=== PATIENT | female | born 1950 | race Two or more races ===

== ENCOUNTER 2020-04-26 13:50 | Outpatient (REF) | payer MEDICARE, SELFPAY ==
--- NOTE | 2020-04-26 | MM_ITS ---
EXAMINATION: MM DIAGNOSTIC DIGITAL BREAST TOMOSYNTHESIS, BILATERAL CLINICAL INFORMATION: Follow up bilateral calcifications The lifetime risk of breast cancer based on the Tyrer-Cuzick Model is 8.9%. COMPARISON: Mammography: April 04, 2019 and studies dating back to September 23, 2012 TECHNIQUE: Digital breast tomosynthesis is performed in both the craniocaudal and mediolateral oblique views along with computer-aided detection (CAD). Synthesized 2D images are generated from the tomosynthesis. Additional spot magnification views performed of each breast in craniocaudal and 90 degree mediolateral views. FINDINGS: The breasts are heterogeneously dense, which may obscure small masses (ACR BI-RADS breast composition Category c). There is stability of bilateral grouped and scattered calcifications. There is a stable region of architectural distortion seen about the lateral aspect of the left breast. No new abnormal dominant mass. Results are provided to the patient at time of visit by the technologist. MM/MM tomosynthesis diagnostic BI IMPRESSION: There are no significant changes from prior study. ASSESSMENT: BI-RADS 2: Benign RECOMMENDATION: Routine annual mammography screening due in 12 months. This patient's information was entered into a reminder system with a target due date for their next mammogram.
== END 2020-04-26 13:51 | disposition home or self-care (01) ==
LOC: HO.MAMMO 13:50
PROVIDERS: Visit Provider Internal Medicine
DX: R92.1 Mammographic calcification found on diagnostic imaging of breast (principal); Z12.31 Encounter for screening mammogram for malignant neoplasm of breast
CPT/HCPCS: 77062; 77066

== ENCOUNTER 2020-07-26 08:26 | Outpatient (REF) | payer MEDICARE, SELFPAY ==
[2020-07-26 09:18] LABS: MANUAL DIFF FLAG NO
[2020-07-26 09:26] LABS: Basophils Percent Auto 0.7 % (0-2); Eosinophils Absolute Auto 0.1 X10*3/uL (0.0-0.4); Hematocrit 42.6 % (37-47); Hemoglobin 13.9 g/dl (12.0-16.0); Imm Gran Abs Auto 0.01 X10*3/uL (0.00-0.03); Imm Gran Pct Auto 0.2 % (0.0-0.4); Lymphocytes Percent Auto 49.3 % (20-40); Mean Corpuscular HGB Conc 32.6 g/dl (31.0-35.0); Mean Platelet Volume 10.1 fL (9.4-12.3); Monocytes Absolute Auto 0.5 X10*3/uL (0.1-1.2); Monocytes Percent Auto 7.6 % (2-11); Neutrophils Absolute Auto 2.5 X10*3/uL (2.0-8.3); Neutrophils Percent Auto 40.2 % (45-73); Platelet Count 188 X10*3/uL (160-400); Red Blood Count 4.63 X10*6/uL (4.20-5.50); Red Cell Distribution Width 13.2 % (11.0-16.0); White Blood Count 6.2 X10*3/uL (4.8-10.8)
[2020-07-26 09:59] LABS: Alanine Aminotransferase 52 U/L (0-31); Alkaline Phosphatase 113 U/L (39-117); Anion Gap 14 (12-20); Aspartate Amino Transferase 49 U/L (5-31); Bilirubin Total 1.2 mg/dL (0.0-1.0); Blood Urea Nitrogen 10 mg/dL (9-16); Calcium 9.5 mg/dL (8.4-10.2); Carbon Dioxide 27 mmol/L (22-29); Chloride 104 mmol/L (96-108); Cholesterol 215 mg/dL; Estimated Glomerular Filt Rate > 60; Glucose Fasting 161 mg/dL (60-99); HDL Cholesterol 41 mg/dL; LDL Cholesterol Calculated 142 mg/dl; Potassium 4.7 mmol/L (3.3-5.1); Sodium 140 mmol/L (135-145); Total Protein 8.2 g/dL (6.5-8.0); Triglycerides 160 mg/dL
[2020-08-04 13:26] LABS: Vitamin D 25-OH, D2 <4 ng/mL; Vitamin D 25-OH, D3 16 ng/mL; Vitamin D 25-OH, Total 16 ng/mL (30-100)
== END 2020-07-26 08:27 | disposition home or self-care (01) ==
LOC: HO.LAB 08:26
PROVIDERS: PCP Internal Medicine; Visit Provider Internal Medicine
DX: E78.5 Hyperlipidemia, unspecified (principal); E55.9 Vitamin D deficiency, unspecified; R73.09 Other abnormal glucose
CPT/HCPCS: 36415; 80053; 80061; 82306; 85025

== ENCOUNTER 2022-03-27 08:31 | Outpatient (REF) | payer OTHER, SELFPAY ==
--- NOTE | ~2022-03-27 | MM_ITS ---
EXAMINATION: MM SCREENING DIGITAL BREAST TOMOSYNTHESIS, BILATERAL CLINICAL INFORMATION: Screening. Asymptomatic. Patient states she has not had previous surgery however review of studies dating back to 2006 demonstrate patient to have been status post surgical procedure in the upper outer aspect of the left breast. COMPARISON: Mammography: 04/26/2020 and studies dating back to 01/24/2014. TECHNIQUE: Digital breast tomosynthesis is performed in both the craniocaudal and mediolateral oblique views along with computer-aided detection (CAD). Synthesized 2D images are generated from the tomosynthesis. FINDINGS: The breasts are heterogeneously dense, which may obscure small masses (ACR BI-RADS breast composition Category c). There are no new significant masses, abnormal calcifications, or other abnormalities. Stable postsurgical changes seen within the upper outer aspect of the left breast. There is multiplicity and bilaterality of calcifications with no 1 new suspicious grouping of calcifications identified. MM/MM tomosynthesis screening BI IMPRESSION: No significant changes from prior exam. ASSESSMENT: BI-RADS 2: Benign. RECOMMENDATION: Routine annual mammography screening. This patient's information was entered into a reminder system with a target due date for their next mammogram.
== END 2022-03-27 08:32 | disposition home or self-care (01) ==
LOC: HO.MAMMO 08:31
PROVIDERS: PCP Internal Medicine; Visit Provider Internal Medicine
DX: Z12.31 Encounter for screening mammogram for malignant neoplasm of breast (principal)
CPT/HCPCS: 77063; 77067

== ENCOUNTER 2022-04-19 08:55 | Outpatient (REF) | payer OTHER, SELFPAY ==
[2022-04-19 10:24] LABS: Alanine Aminotransferase 29 U/L (0-31); Albumin Level 3.8 g/dL (3.5-5.0); Alkaline Phosphatase 107 U/L (39-117); Anion Gap 12 (12-20); Aspartate Amino Transferase 30 U/L (5-31); Blood Urea Nitrogen 8 mg/dL (9-16); Calcium 9.3 mg/dL (8.4-10.2); Carbon Dioxide 28 mmol/L (22-29); Chloride 104 mmol/L (96-108); Cholesterol 200 mg/dL; Estimated Glomerular Filt Rate > 60; Glucose Fasting 157 mg/dL (60-99); HDL Cholesterol 52 mg/dL; LDL Cholesterol Calculated 125 mg/dl; Potassium 4.2 mmol/L (3.3-5.1); Sodium 140 mmol/L (135-145); Total Protein 7.5 g/dL (6.5-8.0); Triglycerides 119 mg/dL
== END 2022-04-19 08:56 | disposition home or self-care (01) ==
LOC: HO.LAB 08:55
PROVIDERS: PCP Internal Medicine; Visit Provider Internal Medicine
DX: R73.09 Other abnormal glucose (principal); E78.5 Hyperlipidemia, unspecified
CPT/HCPCS: 36415; 80053; 80061

== ENCOUNTER 2022-08-27 08:20 | Outpatient (REF) | payer MEDICARE, SELFPAY ==
[2022-08-27 09:45] LABS: Alanine Aminotransferase 35 U/L (0-31); Albumin Level 3.5 g/dL (3.5-5.0); Alkaline Phosphatase 130 U/L (39-117); Anion Gap 11 (12-20); Aspartate Amino Transferase 34 U/L (5-31); Bilirubin Total 1.1 mg/dL (0.0-1.0); Blood Urea Nitrogen 9 mg/dL (9-16); Calcium 9.3 mg/dL (8.4-10.2); Carbon Dioxide 27 mmol/L (22-29); Chloride 106 mmol/L (96-108); Cholesterol 201 mg/dL; Estimated Glomerular Filt Rate > 60; Glucose Fasting 160 mg/dL (60-99); HDL Cholesterol 48 mg/dL; LDL Cholesterol Calculated 132 mg/dl; Potassium 3.8 mmol/L (3.3-5.1); Sodium 140 mmol/L (135-145); Total Protein 7.1 g/dL (6.5-8.0); Triglycerides 107 mg/dL
[2022-08-27 10:44] LABS: Creatinine Urine 111.49 mg/dL
[2022-08-27 11:46] LABS: Vitamin D 25-OH Total 22.1 ng/mL (>30)
== END 2022-08-27 08:21 | disposition home or self-care (01) ==
LOC: HO.LAB 08:20
PROVIDERS: PCP Internal Medicine; Visit Provider Internal Medicine
DX: E11.9 Type 2 diabetes mellitus without complications (principal); E78.5 Hyperlipidemia, unspecified; E55.9 Vitamin D deficiency, unspecified
CPT/HCPCS: 36415; 80053; 80061; 82043; 82306

== ENCOUNTER 2023-04-13 09:58 | Outpatient (REF) | payer MEDICARE, SELFPAY ==
--- NOTE | ~2023-04-13 | MM_ITS ---
EXAMINATION: MM SCREENING DIGITAL BREAST TOMOSYNTHESIS, BILATERAL CLINICAL INFORMATION: Screening. Asymptomatic. COMPARISON: Mammography: This study is compared with prior exams dating back to 2009. TECHNIQUE: Digital breast tomosynthesis is performed in both the craniocaudal and mediolateral oblique views along with computer-aided detection (CAD). Synthesized 2D images are generated from the tomosynthesis. FINDINGS: The breasts are heterogeneously dense, which may obscure small masses (ACR BI-RADS breast composition Category c). The patient has a history of prior excisional biopsy in the upper outer quadrant of the left breast which was performed to 2006. This information is gleaned from the screening mammogram report from March 2022. Consistent with that history, there is long-standing architectural change in the upper outer quadrant of the left breast consistent with findings related to prior surgery. The center of the postsurgical scarring is a lucent and without convergence of trabecula lines to a single, central point, indicating that this is not a neoplastic process. There are also stable benign calcifications in the same quadrant and a tissue marker from prior benign percutaneous biopsy. There are no significant masses, abnormal calcifications, or other abnormalities. MM/MM tomosynthesis screening BI IMPRESSION: No mammographic evidence of malignancy. ASSESSMENT: BI-RADS BI-RADS 2 - Benign Findings RECOMMENDATION: Routine annual mammography screening. 1 year F/U This examination should not preclude the clinical evaluation of a suspicious palpable abnormality. This patient's information was entered into a reminder system with a target due date for their next mammogram.
== END 2023-04-13 09:59 | disposition home or self-care (01) ==
LOC: HO.MAMMO 09:58
PROVIDERS: PCP Internal Medicine; Visit Provider Internal Medicine
DX: Z12.31 Encounter for screening mammogram for malignant neoplasm of breast (principal)
CPT/HCPCS: 77063; 77067

== ENCOUNTER → 2023-04-13 10:00 | Outpatient (BNV) | payer MEDICARE, SELFPAY | PROVIDERS: PCP Internal Medicine; Visit Provider Radiology Diagnostic Radiology | DX: Z12.31 Encounter for screening mammogram for malignant neoplasm of breast (principal) | CPT/HCPCS: 77063; 77067 ==

== ENCOUNTER 2024-04-18 09:51 | Outpatient (REF) | payer MEDICARE, SELFPAY ==
--- NOTE | ~2024-04-18 | MM_ITS ---
EXAMINATION: MM SCREENING DIGITAL BREAST TOMOSYNTHESIS, BILATERAL CLINICAL INFORMATION: Screening. Asymptomatic. COMPARISON: Mammography: Comparison is made with available priors TECHNIQUE: Digital breast mammography with tomosynthesis is performed in both the craniocaudal and mediolateral oblique views along with computer-aided detection (CAD). FINDINGS: The breasts are heterogeneously dense, which may obscure small masses (ACR BI-RADS breast composition Category c). Prior left postsurgical changes are stable. Marker clip in the left upper outer breast. There are no significant masses, abnormal calcifications, or other abnormalities. MM/MM tomosynthesis screening BI IMPRESSION: No mammographic evidence of malignancy. ASSESSMENT: BI-RADS BI-RADS 2 - Benign Findings RECOMMENDATION: Routine annual mammography screening. 1 year F/U This examination should not preclude the clinical evaluation of a suspicious palpable abnormality. This patient's information was entered into a reminder system with a target due date for their next mammogram. Electronically signed by: Comfort Mckoy DO 04/22/2024 01:37 PM EDIE SAUCEDA
== END 2024-04-18 09:52 | disposition home or self-care (01) ==
LOC: HO.MAMMO 09:51
PROVIDERS: PCP Internal Medicine; Visit Provider Internal Medicine
DX: Z12.31 Encounter for screening mammogram for malignant neoplasm of breast (principal)
CPT/HCPCS: 77063; 77067

== ENCOUNTER → 2024-04-18 10:00 | Outpatient (BNV) | payer MEDICARE, SELFPAY | PROVIDERS: PCP Internal Medicine; Visit Provider Internal Medicine | DX: Z12.31 Encounter for screening mammogram for malignant neoplasm of breast (principal) | CPT/HCPCS: 77063; 77067 ==

== ENCOUNTER 2025-02-01 09:34 | Outpatient (AMB) | payer OTHER, SELFPAY ==
--- NOTE | 2025-02-01 09:35 | A.OFFPC_ITS ---
Vital Signs 02/01/25 09:46 Height 5 ft 1.22 in Weight 140 lb 4 oz BMI 26.3 BP 130/84 Blood Pressure Location Rt brachial Position Sitting Respiration 16 Pulse 89 Pulse Source Pulse Oximeter Temp 98.0 F Temp Source Oral Pulse Oximetry (%) 96 Oxygen Delivery Method Room Air Intake Visit Reasons: hemoglobin is low Intake Note: Patient here for a follow up DM Marketing Technology Specialist Required: No Accompanied by: Self / Same As Patient Allergies No Known Allergies (No Known Allergies*) Allergy (Verified 02/01/25 09:35) Tobacco use date assessed: 02/01/25 Fall risk assessment: No Falls in past year Last assessed Fall Risk: 02/01/25 Dental Screening Dental Screen Date: 02/01/25 Did you have a dental visit in the last 12 months?: Yes Did you have a dental problem in the last 6 months where you did not have access to dental care?: No Was dental information given to patient?: Patient has dentist HPI HPI Comments History of Present Illness Details History of Present Illness The patient is a 74-year-old female presenting for a routine wellness examination when queried about her past medical history she denies he has any but records showed that she has blood sugar strips and kit and Lantus ordered she had a nurse visit performed at home and she brought in a document stating that her hemoglobin A1c is currently 7.1 seems like she is not aware of her type 2 diabetes diagnosis will order screening labs Health Maintenance - Colon cancer screening she is doing to use as per patient - Osteoporosis screening requested, pend ing - Routine bloodwork and metabolic panels ordered - Eye examination scheduled for March Review of Systems - General: Denies symptoms not directly stated. - Dermatologic: No issues mentioned. - HEENT: Reports annual eye examinations ; cataract surgery previously done. - Musculoskeletal: Exercise or activity not discussed. - Neurological: No complaints disclosed. - Psychiatric: Mood stable; no additiona l comments on depression. - Respiratory: No breathing difficulties noted. 10-point ROS reviewed and negative excep t as noted in HPI Medication History - Atorvastatin 40 mg - Metformin 850 mg b.i.d. - Vitamin D3 cholecalciferol 50 mcg Past Medical History - Diabetes mellitus type 2 - Hyperlipidemia - Mild major depression - Low vitamin-D - Age-related cataract, status-post zeb milly Past Surgical History - History of left breast biopsy - Cataract surgery Social History - Patient from [facility], [place]. - No current employment or activity/exer cise details provided. - Spouse has Parkinson's disease, provid es some level of support. Physical Exam - General- Well-appearing, in no acute d istress. - Vital Signs- Within normal limits. - HEENT- Normocephalic, atraumatic, PERR LA, EOMI, oropharynx clear, TMs intact bilaterally. - Neck- Supple, no lymphadenopathy. - Cardiovascular- Regular rate, rhythm, normal S1/S2, no murmurs. - Respiratory- Lungs clear bilaterally. - Abdomen- Soft, non-tender, normoactive bowel sounds. - MSK- Full range of motion, no joint sw elling. - Skin- Warm, dry, intact. - Neuro- Alert and oriented x3, appropri ate coordination and gait. - Psych- Appropriate mood and affect. Discussion Notes In today?s appointment, I discussed with the patient the importance of continuing with regular wellness check-ups, including osteoporosis screening, as she has never been evaluated for this. I also ordered blood tests to check glucose control (HbA1c), liver and kidney function, bone health, including Vitamin D and B12 levels. The necessity for eye examination follow-ups was reinforced, with a forthcoming March appointment. Consent was discussed, and the patient expressed understanding of the need for routine health maintenance and screenings. We also reviewed her current medication regimen and confirmed no changes were needed at this time. Plan 1. Diabetes Mellitus Type 2 Screening labs for A1c microalbumin to confirm diagnosis 2. Hyperlipidemia Lipid levels to be reassessed. Patient Instructions - Continue taking all prescribed medicat ions as directed. - Schedule and complete ordered blood te sts for glucose, Vitamin D, kidney, liver function, and osteoporosis screening. - Attend the eye examination in March as planned. - Follow a healthy lifestyle, including any dietary recommendations previously discussed. - Return for regular follow-ups to monit or health status and ensure early detection of any issues. - Seek medical care if new symptoms jesus e or existing conditions worsen. [facility] Medical History Elevated hemoglobin A1c Surgical History History of left breast biopsy Family History (Updated 02/01/25 @ 09:36 by Eneida Castillo MA) Father No problems noted. Mother No problems noted. Social History (Updated 02/01/25 @ 09:37 by Eneida Castillo MA) Housing: House Alcohol intake: current Alcohol intake frequency: does not drink Patient Tobacco Use Status: Never used Tobacco e-Cigarette/Vaping Use: Never Used Second Hand Smoke Exposure: No service: No Current occupational status: retired Cognitive needs: No Hearing needs: No Vision needs: No Questionnaire PHQ-9 Over the last 2 weeks, how often have you been bothered by any of the following problems? 1. Little interest or pleasure in doing things: not at all 2. Feeling down, depressed, or hopeless: not at all 3. Trouble falling or staying asleep, or sleeping too much: not at all 4. Feeling tired or having little energy: not at all 5. Poor appetite or overeating: not at all 6. Feeling bad about yourself - or that you are a failure or have let yourself or your family down: not at all 7. Trouble concentrating on things, such as reading the newspaper or watching television: not at all 8. Moving or speaking so slowly that other people could have noticed. Or the opposite - being so fidgety or restless that you have been moving around a lot more than usual: not at all 9. Thoughts that you would be better off or of hurting yourself in some way: not at all Total score: 0 Source: Developed by Drs. Kurtis Mandujano, Aisha Luevano, Jim Montes and colleagues, with an educational sravan from [employer]. Thrive Questionnaire Date Thrive assessed: 02/01/25 I am a: Patient What is your living situation today?: I have a steady place to live Within the past 12 months, did the food you bought not last and you didn't have the money to get more?: Never true Within the past 12 months, did you worry whether your food would run out before you got money to buy more?: Never true Do you have trouble paying for medicines?: No Do you have trouble getting transportation to medical appointments?: No Do you have trouble paying your heating and electricity bill?: No Do you have trouble taking care of your child, family member or friend?: No Do you have trouble with day-to-day activities such as bathing, preparing meals, shopping, managing finances, etc.?: No Are you currently unemployed and looking for a job?: No Are you interested in more education?: No Please select the resources that you would like help with: None Currently or been in a relationship where the following occur: No concerns reported THRIVE Score: 0 AUDIT C Alcohol Use Questionnaire (AUDIT-C) 1. How often do you have a drink containing alcohol?: Never 3. How often do you have six or more drinks on one occasion?: Never Total Score: 0 ORESTES-7 AMB Questionnaire ORESTES-7 Date ORESTES - 7 assessed: 02/01/25 Feeling nervous, anxious, or on edge: 0 = Not at all Not being able to stop or control worryin = Not at all Worrying too much about different things: 0 = Not at all Trouble relaxin = Not at all Being so restless that it is hard to sit still: 0 = Not at all Becoming easily annoyed or irritable: 0 = Not at all Feeling afraid as if something awful might happen: 0 = Not at all Total ORESTES-7 score (0-4 normal; 5-9 mild; 10-14 moderate; 15-21 severe): 0 Source: Developed by Drs. Kurtis Mandujano, Aisha Luevano, Jim Montes and colleagues, with an educational sravan from [employer]. Physical exam (Primary Care) Tobacco/Smoking Status: Tobacco use Status Tobacco use date assessed 08/27/22 02/01/25 09:40 Patient Tobacco Use Status Never used Tobacco 02/01/25 09:40 e-Cigarette/Vaping Use Never Used 02/01/25 09:40 PHQ-9: PHQ-9 Score PHQ-9: Total score 0 02/01/25 09:40 Thrive Assessment: Date of Thrive Assessment Date Thrive assessed 02/01/25 02/01/25 09:40 Currently or been in a relationship where the following occur: No concerns reported Coding Level of Care Code New Pt Level 4 (95769) Diagnoses Hypovitaminosis D E55.9 Establishing care with new doctor, encounter for Z76.89 Routine lab draw Z01.89 Encounter for screening, unspecified Z13.9 Screening for depression Z13.31 Diabetes type 2 E11.9 Hyperlipidemia E78.5 Osteoporosis screening Z13.820 Assessment & Plan Assessment & Plan (1) Hypovitaminosis D: Code(s): E55.9 - Vitamin D deficiency, unspecified Category: Medical (2) Establishing care with new doctor, encounter for: Code(s): Z76.89 - Persons encountering health services in other specified circumstances (3) Routine lab draw: Code(s): Z01.89 - Encounter for other specified special examinations (4) Encounter for screening, unspecified: Code(s): Z13.9 - Encounter for screening, unspecified (5) Screening for depression: Code(s): Z13.31 - Encounter for screening for depression (6) Diabetes type 2: Code(s): E11.9 - Type 2 diabetes mellitus without complications (7) Hyperlipidemia: Code(s): E78.5 - Hyperlipidemia, unspecified (8) Osteoporosis screening: Code(s): Z13.820 - Encounter for screening for osteoporosis Category: Medical Plan Orders: Orders Comprehensive Met. Panel Today E11.9 - Type 2 diabetes mellitus without complications, Z13.9 - Encounter for screening, unspecified, Z76.89 - Persons encountering health services in other specified circumstances Hepatitis B Surface Antibody Today E11.9 - Type 2 diabetes mellitus without complications, Z13.9 - Encounter for screening, unspecified, Z76.89 - Persons encountering health services in other specified circumstances Hepatitis B Surface Antigen Today E11.9 - Type 2 diabetes mellitus without complications, Z13.9 - Encounter for screening, unspecified, Z76.89 - Persons encountering health services in other specified circumstances Hepatitis C Antibody Today E11.9 - Type 2 diabetes mellitus without complications, Z13.9 - Encounter for screening, unspecified, Z76.89 - Persons encountering health services in other specified circumstances HIV Ab/Ag Today E11.9 - Type 2 diabetes mellitus without complications, Z13.9 - Encounter for screening, unspecified, Z76.89 - Persons encountering health services in other specified circumstances Microalbumin, Random (w Creat) Today E11.9 - Type 2 diabetes mellitus without complications, Z13.9 - Encounter for screening, unspecified, Z76.89 - Persons encountering health services in other specified circumstances UA CC w/rflx Micro + Cult Today E11.9 - Type 2 diabetes mellitus without complications, Z13.9 - Encounter for screening, unspecified, Z76.89 - Persons encountering health services in other specified circumstances Vitamin D 1,25 dihydroxy Today E11.9 - Type 2 diabetes mellitus without complications, Z13.9 - Encounter for screening, unspecified, Z76.89 - Persons encountering health services in other specified circumstances XR DEXA axial skeleton Today Z13.820 - Encounter for screening for osteoporosis Complete Blood Count Auto Diff Today E11.9 - Type 2 diabetes mellitus without complications, Z13.9 - Encounter for screening, unspecified, Z76.89 - Persons encountering health services in other specified circumstances Hemoglobin A1c Today E11.9 - Type 2 diabetes mellitus without complications, Z13.9 - Encounter for screening, unspecified, Z76.89 - Persons encountering health services in other specified circumstances Lipid Panel Today E11.9 - Type 2 diabetes mellitus without complications, Z13.9 - Encounter for screening, unspecified, Z76.89 - Persons encountering health services in other specified circumstances Magnesium Today E11.9 - Type 2 diabetes mellitus without complications, Z13.9 - Encounter for screening, unspecified, Z76.89 - Persons encountering health services in other specified circumstances TSH reflex Free T4 Today E11.9 - Type 2 diabetes mellitus without complications, Z13.9 - Encounter for screening, unspecified, Z76.89 - Persons encountering health services in other specified circumstances Vitamin B12 and Folate Today E11.9 - Type 2 diabetes mellitus without complications, Z13.9 - Encounter for screening, unspecified, Z76.89 - Persons encountering health services in other specified circumstances Syphilis Screen Today Z13.9 - Encounter for screening, unspecified, Z76.89 - Persons encountering health services in other specified circumstances
[2025-02-01 09:46] VITALS: BP 130/84; PULSE 89; RESP 16; TEMP 36.7; O2SAT 96; BMI 26.3
--- OUTSIDE RECORDS SUMMARY | 2025-02-01 11:20 | XMS_ITS | Clinical Summary ---
Author Organization [facility] Address [address] [place] [address] Care Team Providers Care Personnel Psychologist Name Role Phone Anastasia Bonilla MD Primary Care Provider Social History Tobacco Use Types Packs/Day Years Used Date Smoking Tobacco: Never Assessed Comments Unknown Sex and Gender Information Value Date Recorded Sex Assigned at Not on file Legal Sex Female 12:54 AM EST Gender Identity Not on file Sexual Orientation Not on file Plan of Treatment Health Maintenance Due Date Last Done Comments DTaP,Tdap,and Td Vaccines (1 - Tdap) 1969 Pneumococcal Vaccine: 50+ Ye ars (1 of 1 - PCV) 08/26/1999 Zoster Vaccines (1 of 2) 08/26/1999 Colorectal Cancer Screening: Colonoscopy 04/20/2022 Falls Risk Assessment 04/20/2022 Hepatitis C Screening 04/20/2022 Osteoporosis Screening (Bone Density Screening) 04/20/2022 Social Influencers of Health Screening 04/20/2022 Depression Screening 05/18/2024 RSV Immunization Adult Patie nts (1 - 1-dose 75+ series) 2024 COVID-19 Vaccine (2023-2 5 season) 2025 Influenza Vaccine (#1) 2025 HIB Vaccines Aged Out No longer eligi ble based on patient's age to complete this topic HPV Vaccines Aged Out No longer eligi ble based on patient's age to complete this topic Hepatitis A Vaccines Aged Out No long er eligible based on patient's age to complete this topic Hepatitis B Vaccines Aged Out No long er eligible based on patient's age to complete this topic IPV Vaccines Aged Out No longer eligi ble based on patient's age to complete this topic MMR Vaccines Aged Out No longer eligi ble based on patient's age to complete this topic Meningococcal ACWY Vaccine Aged Out N o longer eligible based on patient's age to complete this topic Meningococcal B Vaccine Aged Out No l onger eligible based on patient's age to complete this topic RSV Immunization Patients Un sergio 20 months Aged Out No longer eligible b ased on patient's age to complete this topic Varicella Vaccines Aged Out No longer eligible based on patient's age to complete this topic Care Teams Personnel Psychologist Relationship Specialty Start Date End Date Anastasia Bonilla MD PCP - General 09/17/23
== END 2025-02-01 10:03 | disposition home or self-care (01) ==
LOC: HO.HMCFMS 09:34
PROVIDERS: PCP Student in an Organized Health Care Education/Training Program; Visit Provider Student in an Organized Health Care Education/Training Program
DX: E11.9 Type 2 diabetes mellitus without complications (principal); E55.9 Vitamin D deficiency, unspecified; E78.5 Hyperlipidemia, unspecified

== ENCOUNTER 2025-02-01 09:34 | Outpatient (REF) | payer OTHER, SELFPAY ==
[2025-02-01 13:12] LABS: MANUAL DIFF FLAG NO
[2025-02-01 13:18] LABS: Hematocrit 38.6 % (37.0-47.0); Hemoglobin 12.8 g/dl (12.0-16.0); Imm Gran Abs Auto 0.01 X10*3/uL (0.00-0.03); Imm Gran Pct Auto 0.2 % (0.0-0.4); Lymphocytes Absolute Auto 1.5 X10*3/uL (1.2-4.9); Mean Corpuscular HGB Conc 33.2 g/dl (31.0-35.0); Mean Corpuscular Hemoglobin 30.7 pg (27.0-33.0); Mean Corpuscular Volume 92.6 fL (80.0-98.0); NRBC Abs Auto 0.000 X10*3/uL (0.0-0.012); NRBC Pct Auto 0.0 /100WBC (0.0-0.2); Platelet Count 142 X10*3/uL (160-400); Red Blood Count 4.17 X10*6/uL (4.20-5.50); White Blood Count 4.1 X10*3/uL (4.8-10.8)
[2025-02-01 13:23] LABS: Appearance Urine Clear; Glucose Urine UA Negative (Negative); PH 5.5 (5.0-9.0); Specific Gravity - Urine 1.015 (1.005-1.025); UMIC TRIGGER UACC YES
[2025-02-01 13:36] LABS: UACC Culture Trigger YES
[2025-02-01 14:04] LABS: Alanine Aminotransferase 21 U/L (0-31); Albumin Level 3.9 g/dL (3.5-5.0); Alkaline Phosphatase 105 U/L (39-117); Anion Gap 12 (12-20); Aspartate Amino Transferase 39 U/L (5-31); Blood Urea Nitrogen 8 mg/dL (9-16); Calcium 9.3 mg/dL (8.4-10.2); Carbon Dioxide 26 mmol/L (22-29); Chloride 108 mmol/L (96-108); Cholesterol 196 mg/dL (<200); Estimated Glomerular Filt Rate > 60; HDL Cholesterol 59 mg/dL (>40); Magnesium 1.8 mg/dL (1.6-2.6); Potassium 3.9 mmol/L (3.3-5.1); Sodium 142 mmol/L (135-145); Total Protein 7.8 g/dL (6.5-8.0); Triglycerides 88 mg/dL (<150)
[2025-02-01 14:06] LABS: Microalbum/Creatinine Ratio Ur 7.8 ug/mg cr (<30)
[2025-02-01 14:18] LABS: Folate 12.0 ng/mL (> or = 4.0); Vitamin B12 698 pg/mL (200-900)
[2025-02-02 05:03] LABS: Syphilis Screen Nonreactive (Nonreactive)
[2025-02-02 05:32] LABS: HBS Num1 1.08 mIU/mL (0-7.99); HBsAGNum1 0.30 S/CO (0.00-0.99); HIV Num 1 0.13 S/CO (0.00-0.99); Hepatitis B Surface Antigen Negative (Negative); ~HepC Num1 0.18 S/CO (0.00-0.79); ~Hepatitis B Surface Antibody NONREACTIVE (Nonreactive); ~Hepatitis C Antibody Nonreactive (Nonreactive)
[2025-02-07 02:14] LABS: VITAMIN D (1,25 OH) D3 59 pg/mL; Vit D (1,25-Dihydroxy) Total 59 pg/mL (18-72); Vitamin D (1,25 OH) D2 <8 pg/mL
== END 2025-02-01 09:35 | disposition home or self-care (01) ==
LOC: HO.HKASLDS 09:34
PROVIDERS: PCP Internal Medicine; Visit Provider Student in an Organized Health Care Education/Training Program
DX: Z76.89 Persons encountering health services in other specified circumstances (principal); Z13.9 Encounter for screening, unspecified; Z01.89 Encounter for other specified special examinations; Z13.31 Encounter for screening for depression; Z13.820 Encounter for screening for osteoporosis; E78.5 Hyperlipidemia, unspecified; E11.9 Type 2 diabetes mellitus without complications; E55.9 Vitamin D deficiency, unspecified
CPT/HCPCS: 36415; 80053; 80061; 81001; 82043; 82570; 82607; 82652; 82746; 83036; 83735; 84443; 85025; 86706; 86780; 86803; 87086; 87147; 87340; 87389

== ENCOUNTER 2025-02-15 12:52 | Outpatient (AMB) | payer OTHER, SELFPAY ==
[2025-02-15 12:59] VITALS: BP 133/65; PULSE 77; RESP 16; TEMP 36.7; O2SAT 98; BMI 26.6
--- NOTE | 2025-02-15 12:59 | MHC.PC.OV ---
Vital Signs 02/15/25 12:59 Height 5 ft 1.22 in Weight 142 lb BMI 26.6 BP 133/65 Blood Pressure Location Rt brachial Position Sitting Respiration 16 Pulse 77 Pulse Source Pulse Oximeter Temp 98.1 F Temp Source Oral Pulse Oximetry (%) 98 Oxygen Delivery Method Room Air Intake Visit Reasons: 2 week follow up Intake Note: Patient here for a follow up DM Body Shop Floorperson Required: No Accompanied by: Self / Same As Patient Allergies No Known Allergies (No Known Allergies*) Allergy (Verified 02/15/25 13:00) Tobacco use date assessed: 02/01/25 Fall risk assessment: No Falls in past year Last assessed Fall Risk: 02/01/25 Dental Screening Dental Screen Date: 02/01/25 Did you have a dental visit in the last 12 months?: Yes Did you have a dental problem in the last 6 months where you did not have access to dental care?: No Was dental information given to patient?: Patient has dentist HPI HPI Comments History of Present Illness Details History of Present Illness The patient is a 74-year-old female presenting for follow-up on labs Diabetes mellitus with elevated hemoglobin A1c: - Hemoglobin A1c is 7.5%, indicating poor glycemic control. - Not currently on medication for diabetes management. - Increased risk for cardiovascular complications, renal damage, and other organ damage due to diabetes. Pancytopenia - Low white blood cell count but asymptomatic. Low red blood cells asymptomatic Low platelets asymptomatic - Repeat blood test planned in three months to monitor condition. Elevated liver enzymes: - Elevated liver enzymes prompting further investigation. - Ultrasound planned to assess liver structure. Review of Systems 10-point ROS reviewed and negative except as noted in HPI Past Medical History Health Maintenance - Cardiovascular risk management due to diabetes. - Planned ultrasound for liver assessment. Physical Exam General: Well-appearing, in no acute distress. Vital signs: Within normal limits. HEENT: Normocephalic, atraumatic. PERRLA, EOMI. Conjunctiva clear, sclera anicteric. Oropharynx clear, mucous membranes moist. TMs intact bilaterally. Neck: Supple, no lymphadenopathy, no thyromegaly, no JVD or carotid bruits. Cardiovascular: RRR, normal S1/S2, no murmurs, rubs, or gallops. Peripheral pulses 2+ and symmetric. No edema. Respiratory: Lungs clear to auscultation bilaterally, no wheezes, rales, or rhonchi. Normal effort. Abdomen: Soft, non-tender, non-distended. Normoactive bowel sounds. No hepatosplenomegaly, no masses. MSK: Full range of motion, no joint swelling or deformity. Normal gait. Skin: Warm, dry, intact. No rashes, lesions, or pallor. Neuro: Alert and oriented x3. Cranial nerves II-XII intact. Strength 5/5 throughout. Sensation intact. Reflexes 2+ symmetric. Normal coordination and gait. Psych: Appropriate mood and affect. Normal judgment and insight. Plan 1. Diabetes Mellitus With Elevated Hemoglobin A1c - Start metformin 500 mg twice daily with meals. - Follow-up in two weeks to evaluate medication tolerance. - Refer to plastic duplicator and clinical unit educator for comprehensive management. 2. Low White Blood Cell Count - Repeat blood test in three months for monitoring. 3. Elevated Liver Enzymes - Conduct liver ultrasound to assess structural health. Discussion Notes I discussed with the patient the need to start metformin to manage her elevated hemoglobin A1c and reduce cardiovascular risks. We talked about the importance of dietary changes and education on diabetes management. I also explained the need for a liver ultrasound due to elevated liver enzymes and the plan to monitor her white blood cell count. Patient was informed and verbally consented to the use of an ambient scribe for clinic note documentation during this visit. Patient Instructions - Take metformin 1000 mg twice daily with meals. - Return in two weeks for follow-up on medication tolerance. - Attend appointments with the plastic duplicator and clinical unit educator. - Go for a liver ultrasound as scheduled. - Repeat blood test in three months to monitor white blood cell count. [facility] Medical History Osteoporosis screening Elevated hemoglobin A1c Surgical History History of left breast biopsy Family History Father No problems noted. Mother No problems noted. Social History Housing: House Alcohol intake: current Alcohol intake frequency: does not drink Patient Tobacco Use Status: Never used Tobacco e-Cigarette/Vaping Use: Never Used Second Hand Smoke Exposure: No service: No Current occupational status: retired Cognitive needs: No Hearing needs: No Vision needs: No Questionnaire PHQ-9 Over the last 2 weeks, how often have you been bothered by any of the following problems? 1. Little interest or pleasure in doing things: not at all 2. Feeling down, depressed, or hopeless: not at all 3. Trouble falling or staying asleep, or sleeping too much: not at all 4. Feeling tired or having little energy: not at all 5. Poor appetite or overeating: not at all 6. Feeling bad about yourself - or that you are a failure or have let yourself or your family down: not at all 7. Trouble concentrating on things, such as reading the newspaper or watching television: not at all 8. Moving or speaking so slowly that other people could have noticed. Or the opposite - being so fidgety or restless that you have been moving around a lot more than usual: not at all 9. Thoughts that you would be better off or of hurting yourself in some way: not at all Total score: 0 Source: Developed by Drs. Kurtis Mandujano, Aisha Luevano, Jim Montes and colleagues, with an educational sravan from [employer]. Thrive Questionnaire Date Thrive assessed: 02/12/25 I am a: Patient What is your living situation today?: I have a steady place to live Within the past 12 months, did the food you bought not last and you didn't have the money to get more?: Often true Within the past 12 months, did you worry whether your food would run out before you got money to buy more?: Never true Do you have trouble paying for medicines?: No Do you have trouble getting transportation to medical appointments?: No Do you have trouble paying your heating and electricity bill?: No Do you have trouble taking care of your child, family member or friend?: No Do you have trouble with day-to-day activities such as bathing, preparing meals, shopping, managing finances, etc.?: No Are you currently unemployed and looking for a job?: No Are you interested in more education?: No Please select the resources that you would like help with: None Currently or been in a relationship where the following occur: No concerns reported THRIVE Score: 1 AUDIT C Alcohol Use Questionnaire (AUDIT-C) 1. How often do you have a drink containing alcohol?: Never Total Score: 0 ORESTES-7 AMB Questionnaire ORESTES-7 Date ORESTES - 7 assessed: 02/01/25 Feeling nervous, anxious, or on edge: 0 = Not at all Not being able to stop or control worryin = Not at all Worrying too much about different things: 0 = Not at all Trouble relaxin = Not at all Being so restless that it is hard to sit still: 0 = Not at all Becoming easily annoyed or irritable: 0 = Not at all Feeling afraid as if something awful might happen: 0 = Not at all Total ORESTES-7 score (0-4 normal; 5-9 mild; 10-14 moderate; 15-21 severe): 0 Source: Developed by Drs. Kurtis Mandujano, Aisha Luevano, Jim Montes and colleagues, with an educational sravan from [employer]. Physical exam (Primary Care) Vital Signs: Last Vital Signs Temp 98.1 F 02/15/25 12:59 Pulse 77 02/15/25 12:59 Resp 16 02/15/25 12:59 BP 133/65 02/15/25 12:59 Pulse Ox 98 02/15/25 12:59 Oxygen Delivery Method Room Air 02/15/25 12:59 BMI result Body Mass Index 26.6 Tobacco/Smoking Status: Tobacco use Status Tobacco use date assessed 02/01/25 02/15/25 13:04 Patient Tobacco Use Status Never used Tobacco 02/15/25 13:04 e-Cigarette/Vaping Use Never Used 02/15/25 13:04 PHQ-9: PHQ-9 Score PHQ-9: Total score 0 02/15/25 13:04 Thrive Assessment: Date of Thrive Assessment Date Thrive assessed 02/12/25 02/15/25 13:04 Currently or been in a relationship where the following occur: No concerns reported Coding Level of Care Code Est Pt Level 3 (60725) Diagnoses Encounter to discuss test results Z71.2 Elevated liver enzymes R74.8 Diabetes mellitus E11.9 Pancytopenia D61.818 Urine abnormality R82.90 Hyperlipidemia E78.5 Elevated LDL cholesterol level E78.00 Thrombocytopenia D69.6 Erythrocytopenia D64.9 Elevated alkaline phosphatase level R74.8 Assessment & Plan Assessment & Plan (1) Encounter to discuss test results: Code(s): Z71.2 - Person consulting for explanation of examination or test findings (2) Elevated liver enzymes: Code(s): R74.8 - Abnormal levels of other serum enzymes Category: Medical (3) Diabetes mellitus: Code(s): E11.9 - Type 2 diabetes mellitus without complications Category: Medical (4) Pancytopenia: Code(s): D61.818 - Other pancytopenia (5) Urine abnormality: Code(s): R82.90 - Unspecified abnormal findings in urine (6) Hyperlipidemia: Code(s): E78.5 - Hyperlipidemia, unspecified (7) Elevated LDL cholesterol level: Code(s): E78.00 - Pure hypercholesterolemia, unspecified (8) Thrombocytopenia: Code(s): D69.6 - Thrombocytopenia, unspecified (9) Erythrocytopenia: Code(s): D64.9 - Anemia, unspecified (10) Elevated alkaline phosphatase level: Code(s): R74.8 - Abnormal levels of other serum enzymes Plan Orders: Orders US abdomen limited Today R74.8 - Abnormal levels of other serum enzymes Referrals Nutrition/Dietitian Referral E11.9 - Type 2 diabetes mellitus without complications Podiatry Referral E11.9 - Type 2 diabetes mellitus without complications Ophthalmology Referral E11.9 - Type 2 diabetes mellitus without complications Nurse Navigator Referral E11.9 - Type 2 diabetes mellitus without complications Medications: New metformin 1,000 mg PO BID 180 tabs 0RF E11.9 - Type 2 diabetes mellitus without complications rosuvastatin 10 mg PO DAILY 90 tabs 0RF E11.9 - Type 2 diabetes mellitus without complications
--- OUTSIDE RECORDS SUMMARY | 2025-02-15 14:09 | XMS_ITS | Clinical Summary ---
Author Organization [facility] ity Address [address] [place] [address] Care Team Providers Care Government Affairs Specialist Name Role Phone Anastasia Bonilla MD Primary Care Provider Social History Tobacco Use Types Packs/Day Years Used Date Smoking Tobacco: Never Assessed Comments Unknown Sex and Gender Information Value Date Recorded Sex Assigned at Not on file Legal Sex Female 12:54 AM EST Gender Identity Not on file Sexual Orientation Not on file Plan of Treatment Health Maintenance Due Date Last Done Comments Colorectal Cancer Screening: Colonoscopy 1950 DTaP,Tdap,and Td Vaccines (1 - Tdap) 1968 Pneumococcal Vaccine: 50+ Ye ars (1 of 1 - PCV) 08/26/1999 Zoster Vaccines (1 of 2) 08/26/1999 Falls Risk Assessment 04/20/2022 Hepatitis C Screening 04/20/2022 Osteoporosis Screening (Bone Density Screening) 04/20/2022 Social Influencers of Health Screening 04/20/2022 Depression Screening 05/18/2024 RSV Immunization Adult Patie nts (1 - 1-dose 75+ series) 2024 COVID-19 Vaccine ( - 2023-2 5 season) 2025 Influenza Vaccine (#1) 2025 [...] age to complete this topic Care Teams Government Affairs Specialist Relationship Specialty Start Date End Date Anastasia Bonilla MD PCP - General 09/17/23
== END 2025-02-15 13:41 | disposition home or self-care (01) ==
PROVIDERS: PCP Internal Medicine; Visit Provider Student in an Organized Health Care Education/Training Program
DX: E11.69 Type 2 diabetes mellitus with other specified complication (principal); D61.818 Other pancytopenia; Z71.2 Person consulting for explanation of examination or test findings; R74.8 Abnormal levels of other serum enzymes; R82.90 Unspecified abnormal findings in urine; E78.5 Hyperlipidemia, unspecified; E78.00 Pure hypercholesterolemia, unspecified; D69.6 Thrombocytopenia, unspecified; D64.9 Anemia, unspecified

== ENCOUNTER 2025-03-01 12:55 | Outpatient (AMB) | payer OTHER, SELFPAY ==
[2025-03-01 13:07] VITALS: BP 145/72; PULSE 93; RESP 16; TEMP 36.8; O2SAT 98; BMI 26.3
--- NOTE | 2025-03-01 13:07 | MHC.PC.OV ---
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 Accompanied by: Self / Same As Patient Allergies No Known Allergies (No Known Allergies*) Allergy (Verified 03/01/25 13:07) Tobacco use date assessed: 03/01/25 Fall risk assessment: No Falls in past year Last assessed Fall Risk: 02/01/25 Dental Screening Dental Screen Date: 03/01/25 Did you have a dental visit in the last 12 months?: Yes Did you have a dental problem in the last 6 months where you did not have access to dental care?: No Was dental information given to patient?: Patient has dentist HPI HPI Comments History of Present Illness Details Consent Patient was informed and verbally consented to the use of an ambient scribe for clinic note documentation during this visit. History of Present Illness The patient is a 74-year-old female presenting with Type 2 Diabetes Mellitus management. Type 2 Diabetes Mellitus: - The patient's hemoglobin A1c is currently 7.5%, with a target to reduce it below 6.5%. - The patient is currently managed with metformin and atorvastatin, and is not on insulin therapy. - she is tolerating the metformin well and we will continue with current medication - Referrals have been made to a machine stoppage frequency checker, electronics technician apprentice, and positive printer operator for comprehensive care. Hyperlipidemia: - The patient is on atorvastatin for management of hyperlipidemia. Review of Systems 10-point ROS reviewed and negative except as noted in HPI Past Medical History Health Maintenance - Referrals to machine stoppage frequency checker, electronics technician apprentice, and positive printer operator for comprehensive care. Physical Exam General: Well-appearing, in no acute distress. Vital signs: Within normal limits. HEENT: Normocephalic, atraumatic. PERRLA, EOMI. Conjunctiva clear, sclera anicteric. Oropharynx clear, mucous membranes moist. TMs intact bilaterally. Neck: Supple, no lymphadenopathy, no thyromegaly, no JVD or carotid bruits. Cardiovascular: RRR, normal S1/S2, no murmurs, rubs, or gallops. Peripheral pulses 2+ and symmetric. No edema. Respiratory: Lungs clear to auscultation bilaterally, no wheezes, rales, or rhonchi. Normal effort. Abdomen: Soft, non-tender, non-distended. Normoactive bowel sounds. No hepatosplenomegaly, no masses. MSK: Full range of motion, no joint swelling or deformity. Normal gait. Skin: Warm, dry, intact. No rashes, lesions, or pallor. Neuro: Alert and oriented x3. Cranial nerves II-XII intact. Strength 5/5 throughout. Sensation intact. Reflexes 2+ symmetric. Normal coordination and gait. Psych: Appropriate mood and affect. Normal judgment and insight. Plan 1. Type 2 Diabetes Mellitus - Plan to monitor hemoglobin A1c and adjust treatment to achieve a target below 6.5%. - Continue current medications: metformin and atorvastatin. - Follow-up in three months with repeat blood tests. 2. Hyperlipidemia - Continue atorvastatin therapy. Discussion Notes During the visit, I discussed the importance of controlling hemoglobin A1c levels to prevent complications associated with Type 2 Diabetes Mellitus. We aim to gradually reduce the A1c to below 6.5% without causing hypoglycemia. I emphasized the continuation of metformin and atorvastatin and the importance of follow-up appointments to monitor progress. Referrals to specialists were confirmed to ensure comprehensive care. Patient Instructions - Continue taking metformin and atorvastatin as prescribed. - Attend follow-up appointments in three months for blood tests. - Follow up with machine stoppage frequency checker, electronics technician apprentice, and positive printer operator as scheduled. Medical Decision Making The decision to maintain the current medication regimen of metformin and atorvastatin was based on the patient's stable condition and the absence of insulin therapy, which reduces the risk of hypoglycemia. The goal is to lower the hemoglobin A1c to below 6.5% gradually, balancing efficacy and safety. Referrals to specialists were made to address comprehensive care needs. Total time spent caring for the patient today was 30 minutes. This includes time spent before the visit reviewing the chart, time spent documenting, and time spent reviewing laboratory results, diagnostic imaging, medications, performing a medically necessary evaluation, counseling on diagnoses, care coordination. [facility] Medical History (Updated 02/15/25 @ 13:41 by Elroy Oscar MD) Elevated liver enzymes Osteoporosis screening Elevated hemoglobin A1c Surgical History History of left breast biopsy Family History Father No problems noted. Mother No problems noted. Social History Housing: House Alcohol intake: current Alcohol intake frequency: does not drink Patient Tobacco Use Status: Never used Tobacco e-Cigarette/Vaping Use: Never Used Second Hand Smoke Exposure: No service: No Current occupational status: retired Cognitive needs: No Hearing needs: No Vision needs: No Questionnaire PHQ-9 Over the last 2 weeks, how often have you been bothered by any of the following problems? 1. Little interest or pleasure in doing things: not at all 2. Feeling down, depressed, or hopeless: not at all 3. Trouble falling or staying asleep, or sleeping too much: not at all 4. Feeling tired or having little energy: not at all 5. Poor appetite or overeating: not at all 6. Feeling bad about yourself - or that you are a failure or have let yourself or your family down: not at all 7. Trouble concentrating on things, such as reading the newspaper or watching television: not at all 8. Moving or speaking so slowly that other people could have noticed. Or the opposite - being so fidgety or restless that you have been moving around a lot more than usual: not at all 9. Thoughts that you would be better off or of hurting yourself in some way: not at all Total score: 0 Source: Developed by Drs. Kurtis Mandujano, Aisha Luevano, Jim Montes and colleagues, with an educational sravan from [employer]. Thrive Questionnaire Date Thrive assessed: 03/01/25 I am a: Patient What is your living situation today?: I have a steady place to live Within the past 12 months, did the food you bought not last and you didn't have the money to get more?: Often true Within the past 12 months, did you worry whether your food would run out before you got money to buy more?: Never true Do you have trouble paying for medicines?: No Do you have trouble getting transportation to medical appointments?: No Do you have trouble paying your heating and electricity bill?: No Do you have trouble taking care of your child, family member or friend?: No Do you have trouble with day-to-day activities such as bathing, preparing meals, shopping, managing finances, etc.?: No Are you currently unemployed and looking for a job?: No Are you interested in more education?: No Please select the resources that you would like help with: None Currently or been in a relationship where the following occur: No concerns reported THRIVE Score: 1 AUDIT C Alcohol Use Questionnaire (AUDIT-C) 1. How often do you have a drink containing alcohol?: Never Total Score: 0 ORESTES-7 AMB Questionnaire ORESTES-7 Date ORESTES - 7 assessed: 03/01/25 Feeling nervous, anxious, or on edge: 0 = Not at all Not being able to stop or control worryin = Not at all Worrying too much about different things: 0 = Not at all Trouble relaxin = Not at all Being so restless that it is hard to sit still: 0 = Not at all Becoming easily annoyed or irritable: 0 = Not at all Feeling afraid as if something awful might happen: 0 = Not at all Total ORESTES-7 score (0-4 normal; 5-9 mild; 10-14 moderate; 15-21 severe): 0 Source: Developed by Drs. Kurtis Mandujano, Aisha Luevano, Jim Montes and colleagues, with an educational sravan from [employer]. Physical exam (Primary Care) BMI result Body Mass Index 26.3 Tobacco/Smoking Status: Tobacco use Status Tobacco use date assessed 03/01/25 03/01/25 13:11 Patient Tobacco Use Status Never used Tobacco 03/01/25 13:11 e-Cigarette/Vaping Use Never Used 03/01/25 13:11 PHQ-9: PHQ-9 Score PHQ-9: Total score 0 03/01/25 13:11 Thrive Assessment: Date of Thrive Assessment Date Thrive assessed 03/01/25 03/01/25 13:11 Currently or been in a relationship where the following occur: No concerns reported Coding Level of Care Code Est Pt Level 3 (59887) Diagnoses Diabetes mellitus E11.9 Hyperlipidemia LDL goal <70 E78.5 Assessment & Plan Assessment & Plan (1) Diabetes mellitus: Code(s): E11.9 - Type 2 diabetes mellitus without complications Category: Medical (2) Hyperlipidemia LDL goal <70: Code(s): E78.5 - Hyperlipidemia, unspecified Category: Medical Plan
--- OUTSIDE RECORDS SUMMARY | 2025-03-01 16:25 | XMS_ITS | Clinical Summary ---
Author Organization [facility] ity Address [address] [place] [address] Care Team Providers Care Fashion Show Director Name Role Phone Anastasia Bonilla MD Primary [...] age to complete this topic Care Teams Fashion Show Director Relationship Specialty Start Date End Date Anastasia Bonilla MD PCP - General 09/17/23
== END 2025-03-01 13:23 | disposition home or self-care (01) ==
LOC: HO.HMCFMS 12:55
PROVIDERS: PCP Student in an Organized Health Care Education/Training Program; Visit Provider Student in an Organized Health Care Education/Training Program
DX: E11.9 Type 2 diabetes mellitus without complications (principal); E78.5 Hyperlipidemia, unspecified